=== PATIENT | female | born 1995 | race Caucasian/White ===

== ENCOUNTER 2019-03-16 03:00 | Inpatient (IN) ==
[2019-03-16] MEDS ORDERED: *HR* Nalbuphine 10 MG/ML AMPUL IVP PRN (03:29)
[2019-03-16] MEDS ORDERED: Naloxone 0.4 MG/ML INJ IVP PRN (03:29)
[2019-03-16] MEDS ORDERED: Famotidine 20 MG/2 ML VIAL IVP PRN (03:29)
[2019-03-16] MEDS ORDERED: Metoclopramide 10 MG/2 ML VIAL IVP PRN ×2 (03:29→21:30)
[2019-03-16] MEDS ORDERED: miSOPROStol 25 MCG TABLET VG PRN (03:29)
[2019-03-16] MEDS ORDERED: Ringers Solution, Lactated 1,000 ML IVC SCH (03:30)
[2019-03-16] MEDS ORDERED: Penicillin G Potassium 5,000,000 UNIT in 0.9 % Sodium Chloride Mini Bag 100 ML IVPB ONE (03:35)
[2019-03-16] MEDS ORDERED: Penicillin G Potassium 2,500,000 UNIT in 0.9 % Sodium Chloride 100 ML IVPB SCH (04:00)
[2019-03-16 04:01] LABS: Basophils # 0.1 K/mcL (0.0-0.2); Basophils % 0.8 %; Eosinophils # 0.2 K/mcL (0.0-0.6); Eosinophils % 1.4 %; Hemoglobin 13.1 g/dL (11.5-15.4); Lymphocytes # 2.7 K/mcL (0.6-4.6); Lymphocytes % 23.6 %; Mean Corpuscular HGB Conc 32.8 g/dL (31.6-35.5); Mean Corpuscular Hemoglobin 27.3 pg (28.0-33.3); Mean Corpuscular Volume 83.5 fL (83.0-100.0); Mean Platelet Volume 12.4 fL (9.4-12.4); Monocytes # 0.8 K/mcL (0.0-1.3); Monocytes % 6.8 %; Neutrophils # 7.4 K/mcL (1.6-8.9); Platelet Count 179 K/mcL (140-400); Red Blood Count 4.79 M/mcL (3.82-4.97); Segmented Neutrophils % 65.4 %; White Blood Count 11.2 K/mcL (4.3-11.1)
[2019-03-16 04:07] LABS: Amphetamine Screen,Urine Negative ng/mL (Cutoff=1000); Barbiturate Screen,Urine Negative ng/mL (Cutoff=200); Benzodiazepines Screen,Urine Negative ng/mL (Cutoff=200); Cannabinoid Screen,Urine Negative ng/mL (Cutoff = 50); Cocaine Screen,Urine Negative ng/mL (Cutoff= 300); Opiate Screen,Urine Negative ng/mL (Cutoff=300); Phencyclidine Screen,Urine Negative ng/mL (Cutoff=25)
--- NOTE | 2019-03-16 05:20 | OB/GYN History & Physical ---
Date of Encounter: 03/16/19 Time of Encounter: 05:05 Assessment and Plan (1) 40 weeks gestation of Current visit: Yes Status: Acute Admit for IOL . Weir balloon placed using sterile technique. Balloon inflated with 60ml sterile water. PCN for GBS ppx. Epidural if desires. Anticipate . (2) Positive GBS test Current visit: Yes Status: Acute History of Present Illness Chief complaint: IOL HPI: Ms. Poole is a 24 year old female presenting at 40w3d for scheduled IOL. She denies complaints at this time. complicated by dilated renal pelvises bilaterally which was noted to be within normal range when she saw [facility]. A positive Rubella immune Varicella immune Serologies negative GBS positive Past Med Surg Social Fam HX - Past Medical History Medical history: no medical history Psychiatric history: no psych history - Past Surgical History Additional surgical history: left knee sx - Social History Smoking Status: Never smoker Smokeless Tobacco Status: No Alcohol use: none Drug use: none - Family History Mother Living Status: Still Living Hx Family Cardiac Disorders: No Hx Family Respiratory Disorders: No Hx Family Cancer: No Hx Family GI Disorders: No Hx Family Genitourinary Disorders: No Hx Family Endocrine Disorder: No Hx Family Musculoskeletal Disorders: Yes (MS) Hx Family Neuromuscular Disorders: No Hx Family Neurologic Disorders: No Hx Family HEENT Disorders: No Hx Family Autoimmune Disorders: No Hx Family Reproductive Disorders: No Hx Family Psychosocial Disorders: No Hx Family Medical Disorders: No Obstetrical History - Pregnancies : 1 Medications and Allergies Pantoprazole Sodium [Protonix] 40 mg PO DAILY 03/16/19 [History] Pnv No.95/Ferrous Fum/Folic AC [ Caplet] 1 mg PO DAILY 03/16/19 [History] Allergy/AdvReac Type Severity Reaction Status Date / Time No Known Allergies Allergy Verified 03/16/19 03:31 Review of System OB All systems PM: reviewed and no additional remarkable complaints except as stat ed Exam - Constitutional Constitutional: well developed, well nourished, no acute distress - HEENT HEENT: Mucus Membranes Moist - Lungs Respiratory exam: CTAB - Cardiovascular Cardiovascular exam: RRR - Abdomen Abdomen: Present: gravid, non tender - Extremities Extremities exam: normal inspection - Vulva Vulva: bilateral: normal - Vagina Vagina: Present: normal moisture - Cervix Dilation: 1 Effacement: 80 Station: -1 - Anus/Rectum Anus/Rectum: Present: normal perianal skin Results Result Diagrams: 03/16/19 03:35 Abnormal lab results WBC 11.2 K/mcL (4.3-11.1) H 03/16/19 03:35 MCH 27.3 pg (28.0-33.3) L 03/16/19 03:35 All other labs normal. - VTE Reasons for not Prescribing Prophylaxis: Treatment not Indicated - Low risk for VTE
--- NOTE | 2019-03-16 09:53 | Anesthesia Evaluation PreOp ---
Date of Encounter: 03/16/19 Time of Encounter: 09:09 - Past History Planned Operation: labor epidural Cardiac History: Denies any Significant Hx Pulmonary History: Denies Any Significant HX [facility] History: Denies Any Significant HX Other Medical History: Denies Any Significant HX, GERD Anesthesia History: No Prior Anesthetic Complications, Past Anesthesia (left knee reconstruction, no probs with GA, No FHAP.) : Yes Alcohol Use: none Drug use: none Medications and Allergies Pantoprazole Sodium [Protonix] 40 mg PO DAILY 03/16/19 [History] Pnv No.95/Ferrous Fum/Folic AC [ Caplet] 1 mg PO DAILY 03/16/19 [History] Allergy/AdvReac Type Severity Reaction Status Date / Time No Known Allergies Allergy Verified 03/16/19 03:31 - Meds/Allergy Pre-op Review Medications Reviewed: Yes Allergies Reviewed: Yes Beta Blockers on Current Med List: No Anesthesia Results - Labs 03/16/19 03:35 Anesthesia Exam 124/75, 75, 16. FHTs 130s. Height: 5'9" Weight: 102kg NPO (# of Hours): 7 Pain Scale: 3 Pain Scale Used: Numeric (1 - 10) - HEENT Pupil (Motor): Pupils equal, EOMI Mallampati: II Teeth: Normal Oral Opening: Greater than 3 - [facility] LOC: Oriented [facility] Motor: Normal RUE, Normal LUE, Normal RLE, Normal LLE, Normal Face [facility] Sensory: Normal: RUE, LUE, RLE, LLE, Face - Cardiac Rhythm: Regular - Pulmonary Breath Sounds: bilateral Clear Respiratory Effort: Symmetrical Anesthesia Assess/Plan ASA Score: 2 Level of consciousness: Cooperative, Oriented, Tranquil Anesthetic Plan: Epidural Monitoring Plan: Standard Monitors
[2019-03-16] MEDS ORDERED: Epidural Premix (fent/bupiv) 110 ML EP SCH (10:00)
[2019-03-16] MEDS ORDERED: *HR* FentaNYL (PF) 100 MCG/2 ML VIAL ONE (13:46)
[2019-03-16] MEDS ORDERED: Bupivacaine-MPF 0.25% 10 ML VIAL ONE (13:46)
--- NOTE | 2019-03-16 13:59 | Event Note ---
Date of Encounter: 03/16/19 Time of Encounter: 13:58 Patient doing well. Desiring epidural. Weir catheter is out. Sterile vaginal exam performed. Cervix is 8 cm 90% effaced and 0 station. Artificial rupture membranes was performed with clear fluid returned. heart rate 150s category 1.
--- NOTE | 2019-03-16 18:13 | OB Labor Progress Note ---
Date of Encounter: 03/16/19 Time of Encounter: 18:09 Labor Progress Note - Subjective Subjective: Patient comfortable with epidural - Cervix Cervix: 6.5 per Heidi - Heart Tones Heart Tones: 125/moderate/+accels/-decels - Waubay Waubay: 1-2 - Plan Plan: Pitocin has been restarted Continue Pitocin per policy, Frequent repositioning Use of peanut ball Anticipate
--- NOTE | 2019-03-16 18:32 | Anesthesia Procedures ---
Date of Encounter: 03/16/19 Time of Encounter: 13:10 Procedures: Anesthesia - Epidural/Spinal Patient ID/Chart reviewed: Yes Patient examined: Yes OB Eval: Gestational age: 40 OB Eval: : 1 OB Eval: Hx Para: 0 OB Eval: Dilated at (cm): 7 OB Eval: Contractions: Non-stressed pattern Consent Obtained: Yes Supplemental Oxygen: None/Room Air Site Prep: Aseptic Technique, Sterile prep and drape, 0.5% Chlorhexidine/Alcohol Patient position: upright Local Anesthetic: Lidocaine 1% Amount of Local Anesthetic used: 3 Touhy Needle Gauge: 19 Touhy Needle Depth (cm): 6 Catheter Depth at Skin (cm): 11 Test Dose (1.5% Lido + Epi): Volume given (mls): 3 Test Dose Result: Negative Loading Dose: 0.25% Marcaine (mls): 5 Loading Dose: Fentanyl (mcg): 100 Loading Dose Administered: Thru Catheter Infusion Med: 0.125% Bupivacaine w/ 2 mcg/ml Fentanyl Infusion Rate (mls/hr): 14 (5ml demand bolus q 20 mins limit of 2 per hour.) Catheter Secured in Place: Tegaderm, Tape Interspace Used: L3-L4 Loss of Resistance (DRAKE): Yes Blood: No CSF: No Paresthesia: No Procedure: dural puncture technique using 25 gauge johnny spinal needle. Puncture only, no meds administered in the subarachnoid space. Vitals + FHT's: Vital Signs Time 1310 1325 1330 1335 1340 BP 124/75 119/77 115/70 113/70 116/74 Pulse 83 89 67 73 80 FHTs 120 120 120 120 120
[2019-03-16] MEDS ORDERED: Ondansetron 4 MG/2 ML VIAL IVP PRN ×2 (18:36→21:30)
[2019-03-16] MEDS ORDERED: *HR* Oxytocin 10 UNIT/ML VIAL IM ONE (19:07)
[2019-03-16] MEDS ORDERED: *HR* Morphine Sulfate/PF 10 MG/10 ML AMPUL ONE (19:08)
[2019-03-16] MEDS ORDERED: Ketamine *HR* 500 MG/10 ML MDV ONE (19:12)
[2019-03-16] MEDS ORDERED: Ondansetron 4 MG/2 ML VIAL ONE (19:13)
--- NOTE | 2019-03-16 19:47 | OB/GYN Procedure Note ---
Section - Date of procedure: 03/16/19 Preop diagnosis: other (Persistent bradycardia) Post-op diagnosis: same (Tight nuchal cord) Procedure: primary low transverse Surgeon: Errol Monsalve Blood Loss: 400 Was there an assistant case manager present: Yes Industrial Design Intern: Steph Mann Anesthesiologist: Gibran Lepe Locator: Bettina Rosen Anesthesia Type: Epidural section complications: none Disposition: PACU Specimens: Placenta - (s) A Delivery Date: 03/16/19 Delivery Time: 19:08 Presentation: vertex Position: OA Route of delivery: other Gender: Male Viability: Viable Pounds: 9 Ounces: 9 Gram Weight: 3.71 kg at 1 minute: 9 at 5 minutes: 9 Shoulder Dystocia: not encountered Specimens collected: cord blood Placenta: partial extraction Cord: nuchal cord, 3 umbilical vessels - Narrative Narrative: Call to patient's room emergently. heart rate in the 50s and 60s. Patient flap from side to side by nursing staff. Cervix is 7 cm. Previously patient had had a number of late decelerations which resolved spontaneously with position changes. At this time we continued flipping patient trying to get the heart rate to increase. We did not see this happening. Because of this she was taken emergently back for section. Patient and her understood completely and did not wish to have this performed. Procedure Patient was taken to the operating room she was prepped and draped in the usual sterile fashion. Once adequate analgesia was achieved a Pfannenstiel incision was made and carried sharply through subcutaneous taste and fatty tissue to the fascial layers reached. The fascia was then nicked in the midline incised bilaterally with Barboza scissors. It was then dissected vertically for adequate exposure. Rectus abdominis musculature was in the midline, and the peritoneum was sharply entered. A bladder blade was placed in the upper margin incision. The bladder flap was developed. A low-transverse incision was then made lower incision. Occlusion be clear. Incision was bluntly extended. The Pitocin delivered adequate. The rest the was not delivered. There was a tight nuchal cord which was delivered through then reduced. Infant cried immediately upon delivery course Cut. The placenta passed to NICU team in attendance. Cord blood was obtained. The placenta was not V uterine massage and lavage. At this time the uterus uterine lavage performed again. Incision w as then closed with 0 Vicryl suture running locking fashion. There was excellent hemostasis. The pelvic cavity was rinsed thoroughly with sterile water 2. The fascia was then closed the Vicryl suture running nonlocking fashion. The suprafascial region was rinsed thoroughly sterile water testing all bleeders cauterized. The skin was closed john. Patient tolerated procedure well. His blood loss 400 mL. Findings a male weight is 8 lbs. 3 oz., 3710 g with Apgars 9 at 1 minute and 9 at 5 minutes.
[2019-03-16] MEDS ORDERED: CeFAZolin Syr 2,000MG/20 ML 2,000 MG/20 ML SYRINGE IVPB ONE (19:54)
[2019-03-16] MEDS ORDERED: Oxytocin 20 units/ LR 1000 mL 20 UNIT/1,000 ML BAG IVC ONE (20:34)
[2019-03-16] MEDS ORDERED: Sennosides 8.6 MG TABLET PO PRN (21:30)
[2019-03-16] MEDS ORDERED: Simethicone 80 MG TAB.CHEW PO PRN (21:30)
[2019-03-16] MEDS ORDERED: Oxytocin 20 units/ LR 1000 mL 20 UNIT/1,000 ML BAG IVC SCH (21:30)
--- NOTE | 2019-03-16 21:54 | Anesthesia Evaluation Post Op ---
Date of Encounter: 03/16/19 Time of Encounter: 21:45 - Vital Signs Vital Signs: VSS throughout PACU stay. - Lungs Lungs: Clear Ascult./Percussion - Airway Airway: Non-obstructed - Cardiovascular Regular Rate - Mental Status Mental Status: Alert & Oriented, Answers Appropriately - Pain Pain Scale: 2 Pain Scale used: Numeric (1 - 10) - Nausea Vomiting Nausea Vomiting: Not Present - Hydration Hydration: NPO, Weir catheter - Discharge PostOp Status: Transfer Patient to floor
[2019-03-16] MEDS: Ibuprofen 600 MG TABLET PO PRN (22:24)
[2019-03-17] MEDS: Ibuprofen 600 MG TABLET PO PRN ×3 (05:09→20:22)
[2019-03-17 06:10] LABS: Eosinophils % 0.2 %; Hematocrit 33.2 % (35.3-44.9); Immature Granulocytes % 0.7 % (0-4); Lymphocytes % 11.9 %; Mean Corpuscular HGB Conc 31.9 g/dL (31.6-35.5); Mean Corpuscular Hemoglobin 27.5 pg (28.0-33.3); Mean Corpuscular Volume 86.2 fL (83.0-100.0); Mean Platelet Volume 11.7 fL (9.4-12.4); Monocytes % 6.9 %; Platelet Count 154 K/mcL (140-400); Red Blood Count 3.85 M/mcL (3.82-4.97); Red Cell Distribution Width 13.3 % (11.5-14.5); Segmented Neutrophils % 79.9 %; White Blood Count 13.6 K/mcL (4.3-11.1)
[2019-03-17 06:11] LABS: Basophils # 0.1 K/mcL (0.0-0.2); Basophils % 0.4 %; Hemoglobin 10.6 g/dL (11.5-15.4); Lymphocytes # 1.6 K/mcL (0.6-4.6); Monocytes # 0.9 K/mcL (0.0-1.3); Neutrophils # 10.8 K/mcL (1.6-8.9)
[2019-03-17] MEDS: Prenatal Vit/FA 1 EACH TABLET PO SCH (09:08)
--- NOTE | 2019-03-17 15:52 | OB/GYN Progress Note ---
Date of Encounter: 03/17/19 Time of Encounter: 15:49 - Assessment and Plan (1) Status post primary low transverse section Current Visit: Yes Status: Acute Patient meeting day one milestones. Pain well-controlled with prescribed medications. Voiding without difficulty, tolerating regular diet, bleeding light. No bowel movement yet. Anticipate discharge tomorrow (2) Breast feeding status of mother Current Visit: Yes Status: Acute support as needed. Patient states she has a breast pump at home. Subjective - Subjective Principal diagnosis: Status post section Interval history: Date of procedure: 03/16/19 Preop diagnosis: other (Persistent bradycardia) Post-op diagnosis: same (Tight nuchal cord) Procedure: primary low transverse Surgeon: Errol Monsalve Blood Loss: 400 Was there an engineering inspection assistant present: Yes Suction Operator: Steph Mann Anesthesiologist: Gibran Lepe Financial Services Manager: Bettina Rosen Anesthesia Type: Epidural section complications: none Disposition: PACU Specimens: Placenta - Infant (s) Infant A Infant Delivery Date: 03/16/19 Delivery Time: 19:08 Presentation: vertex Position: OA Route of delivery: other Gender: Male Viability: Viable Pounds: 9 Ounces: 9 Gram Weight: 3.71 kg at 1 minute: 9 at 5 minutes: 9 Shoulder Dystocia: not encountered Specimens collected: cord blood Placenta: partial extraction Cord: nuchal cord, 3 umbilical vessels - Narrative Narrative: Call to patient's room emergently. heart rate in the 50s and 60s. Patient flap from side to side by nursing staff. Cervix is 7 cm. Previously patient had had a number of late decelerations which resolved spontaneously with position changes. At this time we continued flipping patient trying to get the heart rate to increase. We did not see this happening. Because of this she was taken emergently back for section. Patient and her understood completely and did not wish to have this performed. Procedure Patient was taken to the operating room she was prepped and draped in the usual sterile fashion. Once adequate analgesia was achieved a Pfannenstiel incision was made and carried sharply through subcutaneous taste and fatty tissue to the fascial layers reached. The fascia was then nicked in the midline incised bilaterally with Barboza scissors. It was then dissected vertically for adequate exposure. Rectus abdominis musculature was in the midline, and the peritoneum was sharply entered. A bladder blade was placed in the upper margin incision. The bladder flap was developed. A low-transverse incision was then made lower incision. Occlusion be clear. Incision was bluntly extended. The Pitocin delivered adequate. The rest the was not delivered. There was a tight nuchal cord which was delivered through then reduced. cried immediately upon delivery course Cut. The placenta passed to NICU team in attendance. Cord blood was obtained. The placenta was not V uterine massage and lavage. At this time the uterus uterine lavage performed again. Incision was then closed with 0 Vicryl suture running locking fashion. There was excellent hemostasis. The pelvic cavity was rinsed thoroughly with sterile water 2. The fascia was then closed the Vicryl suture running nonlocking fashion. The suprafascial region was rinsed thoroughly sterile water testing all bleeders cauterized. The skin was closed john. Patient tolerated procedure well. His blood loss 400 mL. Findings a male infant weight is 8 lbs. 3 oz., 3710 g with Apgars 9 at 1 minute and 9 at 5 minutes. Patient reports: appetite normal, voiding normally, pain well controlled, ambulating normally : doing well, nursing well Objective - Vital Signs Latest vital signs: Vital Signs Temp Pulse Resp BP Pulse Ox 03/17/19 12:27 97.9 F 80 16 113/75 03/17/19 08:40 98.0 F 98 16 115/73 03/17/19 05:00 98.4 F 86 14 113/75 98 03/17/19 01:17 98.3 F 95 15 108/71 95 03/17/19 00:05 97.4 F L 94 14 111/71 03/16/19 23:00 98.6 F 81 15 115/73 96 03/16/19 22:27 98.2 F 81 15 118/73 98 03/16/19 22:00 98.5 F 72 14 108/72 99 Intake and Output 03/16/19 03/17/19 03/17/19 23:59 07:59 15:59 Intake Total 600 / 1320 720 / 1320 Output Total 1075 / 1075 1250 / 1250 Balance -1075 / -1075 -650 / 70 720 / 70 Intake: Oral 600 / 1320 720 / 1320 Output: Catheter 1075 / 1075 1250 / 1250 Other: Meal Breakfast Percent of Meal Consumed 50% - Exam Lungs: bilateral: normal Chest: Normal S1, Normal S2 Extremities: Present: normal Abdomen: Present: normal appearance, soft. Absent: distention, tenderness Incision: Present: dry, intact (surgical dressing) Uterus: Present: normal, firm Fundal Height: 2 (u/2) - Labs Labs: Laboratory Results - last 24 hr 03/17/19 05:50 WBC 13.6 H RBC 3.85 Hgb 10.6 L D Hct 33.2 L MCV 86.2 MCH 27.5 L MCHC 31.9 RDW 13.3 Plt Count 154 MPV 11.7 Immature Gran % 0.7 Seg Neutrophils % 79.9 Lymphocytes % 11.9 Monocytes % 6.9 Eosinophils % 0.2 Basophils % 0.4 Neutrophils # 10.8 H Lymphocytes # 1.6 Monocytes # 0.9 Eosinophils # 0.0 Basophils # 0.1
[2019-03-18] MEDS: *HR* OxyCODONE/APAP 5/325 TABLET PO PRN ×2 (00:28→10:12)
[2019-03-18] MEDS: Ibuprofen 600 MG TABLET PO PRN (02:26)
[2019-03-18 08:37] VITALS: BP 107/70
[2019-03-18] MEDS: Prenatal Vit/FA 1 EACH TABLET PO SCH (10:13)
--- NOTE | 2019-03-18 10:17 | Discharge Summary ---
Date of Encounter: 03/18/19 Time of Encounter: 10:15 - Discharge Diagnosis (1) Status post primary low transverse section Priority: Primary Status: Acute Comments: S/P Delivery Day 2. VSS Pain is well controlled Lochia is light and without clots Tolerating regular diet, passing flatus Voiding without difficulty Breast feeding Discharge home today POC per consult with Dr Kerr - Discharge Medications Prescriptions: New Docusate Sodium [Colace] 100 mg PO BID #60 capsule Docusate [Colace] 100 mg PO BID #60 capsule Ibuprofen [Ibu] 600 mg PO Q6HR PRN #60 tablet PRN Reason: cramping OxyCODONE/APAP 5/325 [Percocet 5/325 MG] 1 each PO Q6HR PRN 7 Days #28 tablet PRN Reason: Pain No Action Pnv No.95/Ferrous Fum/Folic AC [ Caplet] 1 mg PO DAILY Pantoprazole Sodium [Protonix] 40 mg PO DAILY Home Medications: Pantoprazole Sodium [Protonix] 40 mg PO DAILY 03/16/19 [History] Pnv No.95/Ferrous Fum/Folic AC [ Caplet] 1 mg PO DAILY 03/16/19 [History] Docusate Sodium [Colace] 100 mg PO BID #60 capsule 03/17/19 [Rx] Docusate [Colace] 100 mg PO BID #60 capsule 03/17/19 [Rx] Ibuprofen [Ibu] 600 mg PO Q6HR PRN #60 tablet 03/17/19 [Rx] OxyCODONE/APAP 5/325 [Percocet 5/325 MG] 1 each PO Q6HR PRN 7 Days #28 tablet 03/17/19 [Rx] Allergies/Adverse Reactions: Allergy/AdvReac Type Severity Reaction Status Date / Time No Known Allergies Allergy Verified 03/16/19 03:31 Data Procedures and tests throughout hospitalization: Laboratory Tests 03/16/19 03/16/19 03/17/19 03:35 03:35 05:50 WBC 11.2 H 13.6 H RBC 4.79 3.85 Hgb 13.1 10.6 L D Hct 40.0 33.2 L MCV 83.5 86.2 MCH 27.3 L 27.5 L MCHC 32.8 31.9 RDW 13.0 13.3 Plt Count 179 154 MPV 12.4 11.7 Immature Gran % 2.0 0.7 Seg Neutrophils % 65.4 79.9 Lymphocytes % 23.6 11.9 Monocytes % 6.8 6.9 Eosinophils % 1.4 0.2 Basophils % 0.8 0.4 Neutrophils # 7.4 10.8 H Lymphocytes # 2.7 1.6 Monocytes # 0.8 0.9 Eosinophils # 0.2 0.0 Basophils # 0.1 0.1 Urine Opiates Screen Negative Ur Buprenorphine Scrn Negative Ur Barbiturates Screen Negative Ur Phencyclidine Scrn Negative Ur Amphetamines Screen Negative U Benzodiazepines Scrn Negative Urine Cocaine Screen Negative U Marijuana (THC) Screen Negative Ur Drug Screen Interp See Below Date of admission: 03/16/19 03:11 Primary care physician: PCP NONE Discharging clinician: Bonita Borrero Anticipated date of discharge: 03/18/19 - Patient Status Disposition: Home, Self-Care Condition: Good Functional capacity at discharge: independent ambulation Overall status at discharge: patient is progressing back to baseline - Discharge Instructions Follow Up With: NONE,PCP [Primary Care Provider] - Errol Weiss MD [Partnered Physician] - - Diet and Activity Activity: increase activity as tolerated Diet: regular diet Hospital Course Reason for admission: IUP at term Delivery: section Episiotomy: none Laceration: none Other procedures: none complications: none Discharge diagnosis: IUP at term delivered baby: male Time Attestation: Total time spent providing and/or coordinating discharge services: Time Spent: Less than 30 minutes - VTE Reasons for not Prescribing Prophylaxis: Treatment not Indicated - Low risk for VTE Documentation of Mechanical Device: Intermittent pneumatic compression device Exam - Constitutional Vitals: Temp Pulse Resp BP Pulse Ox 98.4 F 80 16 107/70 98 03/18/19 08:36 03/18/19 08:36 03/18/19 08:36 03/18/19 08:36 03/18/19 08:36 General appearance IM: cooperative, A&O X 3, pleasant, no acute distress - Respiratory Respiratory exam: Present: CTAB - Cardiovascular Cardiovascular exam IM: Present: RRR, +S1, +S2 - GI/Abdominal GI/Abdominal exam IM: normal bowel sounds, soft Incision: normal, dry (john), intact - Rectal Rectal exam: deferred - Uterine Tone: Firm Uterus Position: 2 Fingers Below Umbilicus, Midline - Extremities Exam Extremities exam IM: Absent: calf tenderness - Neurological Exam Neurological exam: alert, oriented X3
== END 2019-03-18 12:15 | disposition home or self-care (01) | DRG 788 ==
LOC: 1NENULAB 03:11 → 1NENUOBS 20:56
PROVIDERS: ADMIT Obstetrics & Gynecology; ATTEND Obstetrics & Gynecology

== ENCOUNTER 2020-10-08 04:00 | Inpatient (IN) ==
[2020-10-08] MEDS ORDERED: Metoclopramide 10 MG/2 ML VIAL IVP ONE (08:16)
[2020-10-08] MEDS ORDERED: Famotidine 20 MG/2 ML VIAL IVP ONE (08:16)
[2020-10-08] MEDS ORDERED: CeFAZolin 2,000 MG/50 ML BAG IVPB ONE (08:16)
[2020-10-08] MEDS ORDERED: Ringers Solution, Lactated 1,000 ML IVC ONE (08:16)
[2020-10-08] MEDS ORDERED: Ringers Solution, Lactated 1,000 ML IVC SCH (08:30)
[2020-10-08 09:09] LABS: Basophils # 0.1 K/mcL (0.0-0.2); Basophils % 0.9 %; Eosinophils # 0.1 K/mcL (0.0-0.6); Eosinophils % 0.5 %; Hematocrit 38.3 % (35.3-44.9); Hemoglobin 12.3 g/dL (11.5-15.4); Immature Granulocytes % 1.2 % (0-4); Lymphocytes # 2.2 K/mcL (0.6-4.6); Lymphocytes % 24.4 %; Mean Corpuscular HGB Conc 32.1 g/dL (31.6-35.5); Mean Corpuscular Hemoglobin 27.3 pg (28.0-33.3); Mean Corpuscular Volume 84.9 fL (83.0-100.0); Mean Platelet Volume 11.7 fL (9.4-12.4); Monocytes # 0.5 K/mcL (0.0-1.3); Monocytes % 5.8 %; Neutrophils # 6.2 K/mcL (1.6-8.9); Platelet Count 189 K/mcL (140-400); Red Blood Count 4.51 M/mcL (3.82-4.97); Red Cell Distribution Width 13.9 % (11.5-14.5); Segmented Neutrophils % 67.2 %; White Blood Count 9.2 K/mcL (4.3-11.1)
[2020-10-08] MEDS ORDERED: *HR* Morphine Sulfate/PF 10 MG/10 ML AMPUL ONE (10:07)
[2020-10-08] MEDS ORDERED: *HR* FentaNYL (PF) 100 MCG/2 ML VIAL ONE (10:08)
[2020-10-08] MEDS ORDERED: *HR* Phenylephrine 10 MG/ML VIAL ONE (10:22)
[2020-10-08] MEDS ORDERED: Ondansetron 4 MG/2 ML VIAL ONE (10:48)
[2020-10-08] MEDS ORDERED: Acetaminophen IV 1,000 MG/100 ML BAG IVPB ONE (10:48)
[2020-10-08 12:04] LABS: Amphetamine Screen,Urine Negative ng/mL (Cutoff=1000); Barbiturate Screen,Urine Negative ng/mL (Cutoff=200); Benzodiazepines Screen,Urine Negative ng/mL (Cutoff=200); Cannabinoid Screen,Urine Negative ng/mL (Cutoff = 50); Cocaine Screen,Urine Negative ng/mL (Cutoff= 300); Opiate Screen,Urine Negative ng/mL (Cutoff=300); Phencyclidine Screen,Urine Negative ng/mL (Cutoff=25)
[2020-10-08] MEDS ORDERED: Ketorolac 30 MG/ML VIAL IVP PRN (13:01)
[2020-10-08] MEDS ORDERED: Sennosides 8.6 MG TABLET PO PRN (13:23)
[2020-10-08] MEDS ORDERED: Metoclopramide 10 MG/2 ML VIAL IVP PRN (13:23)
[2020-10-08] MEDS ORDERED: Oxytocin 20 units/ LR 1000 mL 20 UNIT/1,000 ML BAG IVC SCH (13:23)
[2020-10-08] MEDS ORDERED: Ondansetron 4 MG/2 ML VIAL IVP PRN (13:23)
[2020-10-08] MEDS ORDERED: Simethicone 80 MG TAB.CHEW PO PRN (13:23)
[2020-10-08] MEDS: CeFAZolin 2,000 MG/50 ML BAG IVPB SCH (17:45)
[2020-10-08] MEDS: Ibuprofen 600 MG TABLET PO PRN (18:00)
[2020-10-08] MEDS: metroNIDAZOLE 500 MG TABLET PO SCH (20:05)
[2020-10-08] MEDS: *HR* OxyCODONE/APAP 5/325 TABLET PO PRN (21:45)
[2020-10-09] MEDS: CeFAZolin 2,000 MG/50 ML BAG IVPB SCH
[2020-10-09] MEDS: *HR* OxyCODONE/APAP 5/325 TABLET PO PRN ×3 (02:31→14:36)
[2020-10-09] MEDS: Ibuprofen 600 MG TABLET PO PRN ×3 (05:38→12:03)
[2020-10-09 06:23] LABS: Basophils # 0.1 K/mcL (0.0-0.2); Basophils % 0.5 %; Eosinophils # 0.1 K/mcL (0.0-0.6); Eosinophils % 1.1 %; Hematocrit 33.8 % (35.3-44.9); Immature Granulocytes % 0.8 % (0-4); Lymphocytes # 1.4 K/mcL (0.6-4.6); Lymphocytes % 12.1 %; Mean Corpuscular HGB Conc 31.7 g/dL (31.6-35.5); Mean Corpuscular Hemoglobin 27.2 pg (28.0-33.3); Mean Platelet Volume 12.1 fL (9.4-12.4); Monocytes # 0.7 K/mcL (0.0-1.3); Monocytes % 5.7 %; Neutrophils # 9.4 K/mcL (1.6-8.9); Platelet Count 155 K/mcL (140-400); Red Blood Count 3.93 M/mcL (3.82-4.97); Red Cell Distribution Width 14.2 % (11.5-14.5); Segmented Neutrophils % 79.8 %; White Blood Count 11.8 K/mcL (4.3-11.1)
[2020-10-09 06:26] LABS: Hemoglobin 10.7 g/dL (11.5-15.4)
[2020-10-09] MEDS: metroNIDAZOLE 500 MG TABLET PO SCH (07:54)
[2020-10-09] MEDS ORDERED: CeFAZolin 2 GM/120 ML BAG IVPB SCH (08:00)
[2020-10-09 08:10] VITALS: BP 119/67
[2020-10-09] MEDS ORDERED: Prenatal Vit/FA 1 EACH TABLET PO SCH (09:00)
[2020-10-09] MEDS ORDERED: NON-FORMULARY MEDICATION 1 EACH EACH (Pnv No.95/Ferrous Fum/Folic Ac [Prenatal Caplet] 1 E PO SCH (09:00)
== END 2020-10-09 14:15 | disposition home or self-care (01) | DRG 787 ==
LOC: 1NENULAB 08:01 → 1NENUOBS 13:55
PROVIDERS: ADMIT Obstetrics & Gynecology; ATTEND Obstetrics & Gynecology